=== PATIENT | female | born 1940 | race Caucasian/White ===

== ENCOUNTER 2017-10-11 17:41 | Emergency (ER) | payer OTHER ==
[~2017-10-11] VITALS: Ht 152.4 cm; Wt 48.0 kg
[~2017-10-11 17:41] MED LIST: ALBUTEROL SULF8.5 GM IH; KLONOPIN0.5 M1 PO; KLONOPIN1 MG PO; MUCINEX1200 MG PO; MUCINEX600 MG PO; NEXIUM40 MG PO; PREDNISONE50 MG PO; ROXICODONE5 MG PO; SPIRIVA1 INHALATI IH; VENTOLIN HFA18 GM IH; ZITHROMAX Z-PA250 MG PO
[2017-10-11 18:05] LABS: HEMATOCRIT 44.4 % (36.0-46.0); MCH 28.4 PG (29.0-34.0); MCHC 33.6 G/DL (30.0-36.0); MCV 84.6 FL (83-99); MEAN PLAT.VOLUME 10.2 uM^3 (9.5-12.4); PLATELET COUNT 341 K/uL (156-360); RBC DIS.WIDTH-CV 13.2 % (11.8-14.6); RBC DIS.WIDTH-SD 40.8 % (39-53); RED BLOOD COUNT 5.25 M/uL (3.80-5.20)
[2017-10-11 18:16] LABS: CHLORIDE 101 mEq/L (99-109); POTASSIUM 3.8 mEq/L (3.7-5.4); SODIUM 142 mEq/L (136-147)
[2017-10-11 18:18] LABS: GLUCOSE 117 mg/dL (70-99)
[2017-10-11 18:19] LABS: ANION GAP 12 MEQ/L (2-14)
[2017-10-11 18:20] LABS: TOTAL BILIRUBIN 0.5 mg/dL (0.0-1.0)
[2017-10-11 18:21] LABS: ALKALINE PHOSPHATASE 143 IU/L (3-129); GFR ESTIMATE (CALCULATED) 57 mL/min/
[2017-10-11 18:23] LABS: UREA NITROGEN (BUN) 18 mg/dL (9-23)
[2017-10-11 20:08] LABS: URIC ACID 5.6 mg/dL (3.1-9.2)
[2017-10-11 20:10] LABS: ADD MIUA? YES; BILIRUBIN NEGATIVE; BLOOD NEGATIVE; COLOR YELLOW ((YELLOW)); GLUCOSE (STRIP) NEGATIVE; KETONES NEGATIVE; LEUKOCYTES LARGE; NITRITE NEGATIVE; PROTEIN (STRIP) 30; SPECIFIC GRAVITY 1.017 (1.000-1.030)
[2017-10-11 20:34] LABS: BACTERIA 2+ /HPF; CASTS PRESENT /LPF; EPITHELIAL CELLS 3+ /HPF; HYALINE CASTS RARE /LPF; MUCUS NONE SEEN /LPF; RED BLOOD CELLS NONE SEEN /HPF (0-5); UCUL ADDED? YES; WHITE BLOOD CELLS 40-50 /HPF (0-5)
[2017-10-11] MEDS ORDERED: KEFLEX500 MG PO (21:08)
[2017-10-11 21:20] VITALS: BP 179/78
== END 2017-10-11 21:21 | disposition home or self-care (01) ==
LOC: EME 17:41
DX: L03.115 Cellulitis of right lower limb (principal); N39.0 Urinary tract infection, site not specified; I10 Essential (primary) hypertension; J45.909 Unspecified asthma, uncomplicated; F32.9 Major depressive disorder, single episode, unspecified; F17.200 Nicotine dependence, unspecified, uncomplicated; K21.9 Gastro-esophageal reflux disease without esophagitis; F41.9 Anxiety disorder, unspecified; K22.70 Barrett's esophagus without dysplasia; Z85.42 Personal history of malignant neoplasm of other parts of uterus; Z88.5 Allergy status to narcotic agent; Z88.8 Allergy status to other drugs, medicaments and biological substances
CPT/HCPCS: 73610; 73630; 80053; 81003; 84550; 85027; 87086; 99281; 99283

== ENCOUNTER 2017-10-24 13:08 | Observation (INO) | payer OTHER ==
[~2017-10-24] VITALS: Ht 152.4 cm; Wt 49.6 kg
[~2017-10-24 13:08] MED LIST changes: +KEFLEX500 MG PO
[2017-10-24 13:33] LABS: BASOPHIL COUNT 0.1 K/uL (0-0.1); EOSINOPHIL (%) 1.4 % (0-5); EOSINOPHIL COUNT 0.2 K/uL (0-0.3); HEMATOCRIT 45.1 % (36.0-46.0); IMMATURE GRANULOCYTE (%) 0.6 % (0.0-0.7); IMMATURE GRANULOCYTE COUNT 0.1 K/uL; INSTRUMENT ABS NEUTROPHIL CT 10.6 K/uL; LYMPHOCYTE COUNT 2.4 K/uL (1.0-2.8); MCH 28.2 PG (29.0-34.0); MCV 85.3 FL (83-99); MEAN PLAT.VOLUME 10.3 uM^3 (9.5-12.4); MONOCYTE (%) 8.2 % (3-12); MONOCYTE COUNT 1.2 K/uL (0-0.8); NEUTROPHIL (%) 73.1 % (45-76); NEUTROPHIL COUNT 10.6 K/uL (1.8-6.4); PLATELET COUNT 317 K/uL (156-360); RBC DIS.WIDTH-CV 13.6 % (11.8-14.6); RBC DIS.WIDTH-SD 42.5 % (39-53); RED BLOOD COUNT 5.29 M/uL (3.80-5.20); WHITE BLOOD COUNT 14.5 K/uL (4.1-10.2)
[2017-10-24 13:42] LABS: CHLORIDE 104 mEq/L (99-109); POTASSIUM 3.4 mEq/L (3.7-5.4); SODIUM 139 mEq/L (136-147)
[2017-10-24 13:44] LABS: GLUCOSE 114 mg/dL (70-99)
[2017-10-24 13:46] LABS: ANION GAP 12 MEQ/L (2-14)
[2017-10-24 13:48] LABS: GFR ESTIMATE (CALCULATED) > 59 mL/min/
[2017-10-24 13:49] LABS: UREA NITROGEN (BUN) 13 mg/dL (9-23)
[2017-10-24 14:03] LABS: ADD MIUA? YES; BILIRUBIN NEGATIVE; BLOOD SMALL; COLOR AMBER ((YELLOW)); GLUCOSE (STRIP) NEGATIVE; KETONES NEGATIVE; LEUKOCYTES MODERATE; NITRITE NEGATIVE; PROTEIN (STRIP) 100; SPECIFIC GRAVITY 1.028 (1.000-1.030)
[2017-10-24 14:09] LABS: BACTERIA RARE /HPF; EPITHELIAL CELLS 1+ /HPF; MUCUS 3+ /LPF; UCUL ADDED? YES; WHITE BLOOD CELLS 30-40 /HPF (0-5)
[2017-10-24 15:23] LABS: LIPASE 23 U/L (1.0-51.0)
[2017-10-24] MEDS ORDERED: AMLODIPINE BESY10 MG PO (21:21)
[2017-10-24] MEDS ORDERED: AMITRIPTYLINE H10 MG PO (21:21)
[2017-10-24] MEDS ORDERED: ENDOCET 5-3251 EACH PO (21:22)
[2017-10-24] MEDS ORDERED: SERTRALINE HCL25 MG PO (21:23)
[2017-10-24] MEDS ORDERED: VITAMIN D35000 UNIT PO (21:23)
[2017-10-24] MEDS ORDERED: LO-DOSE ASPIRIN81 M1 PO (21:25)
[2017-10-24 21:49] VITALS: BP 138/66
[2017-10-25 03:16] VITALS: BP 126/60
[2017-10-25 05:19] LABS: HEMATOCRIT 36.5 % (36.0-46.0); MCH 27.8 PG (29.0-34.0); MCHC 32.3 G/DL (30.0-36.0); MCV 85.9 FL (83-99); MEAN PLAT.VOLUME 10.7 uM^3 (9.5-12.4); PLATELET COUNT 281 K/uL (156-360); RBC DIS.WIDTH-CV 13.6 % (11.8-14.6); RBC DIS.WIDTH-SD 42.8 % (39-53); RED BLOOD COUNT 4.25 M/uL (3.80-5.20); WHITE BLOOD COUNT 11.7 K/uL (4.1-10.2)
[2017-10-25 06:02] LABS: ANION GAP 8 MEQ/L (2-14); CHLORIDE 104 MEQ/L (99-109); GFR ESTIMATE (CALCULATED) > 59 mL/min/; GLUCOSE 87 mg/dL (70-99); POTASSIUM 3.7 MEQ/L (3.7-5.4); SAMPLE HEMOLYSIS CHECK 0; SAMPLE ICTERIC CHECK 0; SAMPLE LIPEMIA CHECK 0; SODIUM 139 MEQ/L (136-147); UREA NITROGEN (BUN) 15 mg/dL (9-23)
[2017-10-25 08:15] VITALS: BP 173/71
[2017-10-25 12:13] VITALS: BP 136/64
[2017-10-25 16:39] VITALS: BP 146/89
[2017-10-25 18:45] VITALS: BP 148/67
[2017-10-25 23:42] VITALS: BP 130/61
[2017-10-26 03:09] VITALS: BP 143/64
[2017-10-26 08:30] VITALS: BP 132/63
[2017-10-26 11:15] VITALS: BP 142/66
[2017-10-26] MEDS ORDERED: CEFDINIR300 MG PO (12:56)
[2017-10-26] MEDS ORDERED: ACIDOPHILUS CA1 EAC1 PO (12:57)
== END 2017-10-26 15:01 | disposition home or self-care (01) ==
LOC: EME 13:08 → 5WEST 20:27 → ENRESERV 20:27 → EDOF 20:27 → ENRESERV 20:44 → 5WEST 21:45
PROVIDERS: Physician Assistant
DX: N12 Tubulo-interstitial nephritis, not specified as acute or chronic (principal); G89.4 Chronic pain syndrome; K56.699 Other intestinal obstruction unspecified as to partial versus complete obstruction; K21.9 Gastro-esophageal reflux disease without esophagitis; F32.9 Major depressive disorder, single episode, unspecified; K22.70 Barrett's esophagus without dysplasia; G62.9 Polyneuropathy, unspecified; J44.9 Chronic obstructive pulmonary disease, unspecified; I10 Essential (primary) hypertension; G43.909 Migraine, unspecified, not intractable, without status migrainosus; Z86.19 Personal history of other infectious and parasitic diseases; Z90.49 Acquired absence of other specified parts of digestive tract; F17.200 Nicotine dependence, unspecified, uncomplicated; Z79.82 Long term (current) use of aspirin; Z88.5 Allergy status to narcotic agent; Z88.8 Allergy status to other drugs, medicaments and biological substances; Z91.041 Radiographic dye allergy status; Z82.49 Family history of ischemic heart disease and other diseases of the circulatory system; Z83.49 Family history of other endocrine, nutritional and metabolic diseases; Z80.52 Family history of malignant neoplasm of bladder
CPT/HCPCS: 71020; 74176; 80048; 81003; 83605; 83690; 85025; 85027; 87040; 87086; 99202; 99281; 99285; G0378; J0696; J1650; J1956; J2270; J2405